=== PATIENT | male | born 1995 ===

== ENCOUNTER 2017-02-14 10:26 | Emergency (ER) | payer OTHER ==
--- NOTE | 2017-02-14 11:52 | DIAGNOSTIC IMAGING REPORT ---
PROCEDURE: XR CHEST 2 VIEW INDICATION: SHORTNESS OF BREATH TECHNIQUE: PA and lateral views. COMPARISON: None. FINDINGS: Lungs are clear. Heart and mediastinum are normal. Thorax is normal. IMPRESSION: 1. Negative chest.
--- NOTE | 2017-02-14 12:35 | ED CLINICAL REPORT ---
Clinical Report - Physicians/Mid Levels [facility] [address] [place] [address] 02/14/2017 10:30 Patient: CONTRERAS BELLO Time Seen: 10:51; initial patient contact. Arrived- By private vehicle. Historian- patient. HISTORY OF PRESENT ILLNESS Chief Complaint: DYSPNEA. This started 2 days ago and is still present. The dyspnea is described as moderate. The dyspnea is worsened by cough (worse w/ deep breath). No cough, sputum production, fever, sweating episodes or wheezing. No calf pain, foot swelling, anxiety or palpitations. He has had chest pain. Similar symptoms previously: None. Recent medical care: Not recently seen/assessed. REVIEW OF SYSTEMS No laceration or alteration in mental status. All systems otherwise negative, except as recorded above. PAST HISTORY PTSD. Surgeries: No history of previous surgery. Additional Surgeries: no known surgeries. Medications: TraZODone HCl Oral. Allergies: No Known Drug Allergy. SOCIAL HISTORY Smoker - current status unknown. Regular alcohol use. ADDITIONAL NOTES The nursing notes have been reviewed. PHYSICAL EXAM Vital Signs: 02/14/2017 10:41 BP: 115/75. HR: 102. RR: 18. O2 saturation: 98%. Temp: 97.6 F. Pain level now: 8/10. Have been reviewed. Blood pressure normal. Tachycardic. Respiratory rate normal. Temperature normal. Oxygen saturation normal. Appearance: Alert. No acute distress. Eyes: Eyes normal inspection. ENT: Ears normal. Nose normal. CVS: Normal heart rate and rhythm. Heart sounds normal. Respiratory: No respiratory distress. Mild splinting present on the right. Moderate right upper and anterior chest wall tenderness. The tenderness is well-localized. Breath sounds normal. Abdomen: Soft and nontender. Skin: Skin warm and dry. Normal skin color. Neuro: Oriented X 3. LABS, X-RAYS, AND EKG Chest X-ray: No acute disease. Normal lung markings present. Normal heart size. Mediastinum normal. Great vessels normal. Soft tissues normal. No infiltrate. No fracture. No bony lesion present. Views: PA and lateral. Technique: good. The X-rays were independently viewed by me and interpreted contemporaneously by me. Prior films were not available for comparison. PROGRESS AND PROCEDURES Disposition: Discharged home in good and improved condition. Condition: good. CLINICAL IMPRESSION Single contusion to the right chest. INSTRUCTIONS Apply ice for 20 minutes four times a day. Don't apply ice directly to skin. Your Current Medications: CONTINUE TAKING THE FOLLOWING MEDICATIONS: TraZODone HCl Oral. Prescription Medications: Diclofenac 50 mg tablets: take 1 tablet orally every 8 hours as needed for pain or stiffness. Dispense thirty (30). No refill. Follow-up: Follow up with your doctor in about two days. Call for an appointment. Screening today revealed the patient's blood pressure to be in the normal range. (Electronically signed by Suleman Sanchez Dr. 02/16/2017 8:43)
--- NOTE | 2017-02-14 12:35 | ED ORDER SUMMARY ---
..... Patient: CONTRERAS BELLO OrderSheet [facility] VisitID: [id number] [address] [place] [address] 21y, M Registration Date/Time: 02/14/2017 ORDER SHEET Weight: 88.4 kg (stated) Allergies: No Known Drug Allergy GENERAL ORDERS: Chest 2V Urgent (11:02/14/2017 Ashley Jenkins) (11:09 EHassatye R.N.) MEDICATION ORDERS: Hydrocodone-APAP PO 5/325 mg (NOW, HIGH ALERT MEDICATION) (11:02/14/2017 Ashley Jenkins) (11:09 Yesenia R.N.) IV FLUIDS: ORDER SHEET NOTES: [Electronically signed by Blanco Jiménez R.N. (13:07 02/14/2017)] [Electronically signed by Suleman Sanchez Dr. (08:43 02/16/2017)] [Electronically locked/signed by Blanco Jiménez R.N. (13:07 02/14/2017)]
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
--- NOTE | 2017-02-14 12:35 | ED ORDER SUMMARY ---
..... Patient: CONTRERAS BELLO OrderSheet [facility] VisitID: [id number] [address] [place] [address] 21y, M Registration Date/Time: 02/14/2017 ORDER SHEET Weight: 88.4 kg (stated) Allergies: No Known Drug Allergy GENERAL ORDERS: Chest 2V Urgent (11:02/14/2017 Ashley Jenkins) (11:09 EHassatye R.N.) MEDICATION ORDERS: Hydrocodone-APAP PO 5/325 mg (NOW, HIGH ALERT MEDICATION) (11:02/14/2017 Ashley Jenkins) (11:09 Yesenia R.N.) IV FLUIDS: ORDER SHEET NOTES: [Electronically signed by Blanco Jiménez R.N. (13:07 02/14/2017)] [Electronically signed by Suleman Sanchez Dr. (08:43 02/16/2017)] [Electronically locked/signed by Blanco Jiménez R.N. (13:07 02/14/2017)]
--- NOTE | 2017-02-14 12:35 | ED CLINICAL REPORT ---
Clinical Report - Physicians/Mid Levels [facility] [address] [place] [address] 02/14/2017 10:30 Patient: CONTRERAS BELLO Time Seen: 10:51; initial patient contact. Arrived- By private vehicle. Historian- patient. HISTORY OF PRESENT ILLNESS Chief Complaint: DYSPNEA. This started 2 days ago and is still present. The dyspnea is described as moderate. The dyspnea is worsened by cough (worse w/ deep breath). No cough, sputum production, fever, sweating episodes or wheezing. No calf pain, foot swelling, anxiety or palpitations. He has had chest pain. Similar symptoms previously: None. Recent medical care: Not recently seen/assessed. REVIEW OF SYSTEMS No laceration or alteration in mental status. All systems otherwise negative, except as recorded above. PAST HISTORY PTSD. Surgeries: No history of previous surgery. Additional Surgeries: no known surgeries. Medications: TraZODone HCl Oral. Allergies: No Known Drug Allergy. SOCIAL HISTORY Smoker - current status unknown. Regular alcohol use. ADDITIONAL NOTES The nursing notes have been reviewed. PHYSICAL EXAM Vital Signs: 02/14/2017 10:41 BP: 115/75. HR: 102. RR: 18. O2 saturation: 98%. Temp: 97.6 F. Pain level now: 8/10. Have been reviewed. Blood pressure normal. Tachycardic. Respiratory rate normal. Temperature normal. Oxygen saturation normal. Appearance: Alert. No acute distress. Eyes: Eyes normal inspection. ENT: Ears normal. Nose normal. CVS: Normal heart rate and rhythm. Heart sounds normal. Respiratory: No respiratory distress. Mild splinting present on the right. Moderate right upper and anterior chest wall tenderness. The tenderness is well-localized. Breath sounds normal. Abdomen: Soft and nontender. Skin: Skin warm and dry. Normal skin color. Neuro: Oriented X 3. LABS, X-RAYS, AND EKG Chest X-ray: No acute disease. Normal lung markings present. Normal heart size. Mediastinum normal. Great vessels normal. Soft tissues normal. No infiltrate. No fracture. No bony lesion present. Views: PA and lateral. Technique: good. The X-rays were independently viewed by me and interpreted contemporaneously by me. Prior films were not available for comparison. PROGRESS AND PROCEDURES Disposition: Discharged home in good and improved condition. Condition: good. CLINICAL IMPRESSION Single contusion to the right chest. INSTRUCTIONS Apply ice for 20 minutes four times a day. Don't apply ice directly to skin. Your Current Medications: CONTINUE TAKING THE FOLLOWING MEDICATIONS: TraZODone HCl Oral. Prescription Medications: Diclofenac 50 mg tablets: take 1 tablet orally every 8 hours as needed for pain or stiffness. Dispense thirty (30). No refill. Follow-up: Follow up with your doctor in about two days. Call for an appointment. Screening today revealed the patient's blood pressure to be in the normal range. (Electronically signed by Suleman Sanchez Dr. 02/16/2017 8:43)
--- NOTE | 2017-02-16 08:43 | ED DISCHARGE INSTRUCTIONS ---
Patient: CONTRERAS BELLO General Instructions [facility] VisitID: [id number] [place] [address] 21y, M Registration Date/Time: 02/14/2017 Single contusion to the right chest. INSTRUCTIONS Apply ice for 20 minutes four times a day. Don't apply ice directly to skin. Your Current Medications: CONTINUE TAKING THE FOLLOWING MEDICATIONS: TraZODone HCl Oral. Prescription Medications: Diclofenac 50 mg tablets: take 1 tablet orally every 8 hours as needed for pain or stiffness. Dispense thirty (30). No refill. Follow-up: Follow up with your doctor in about two days. Call for an appointment. Screening today revealed the patient's blood pressure to be in the normal range. ADDITIONAL INFORMATION Contusion,Soft Tissue You have a CONTUSION, which is a bruise with swelling and some bleeding under the skin. There are no broken bones. This injury takes a few days to a few weeks to heal. Home Care: 1) Keep the injured part elevated to reduce pain and swelling. This is especially important during the first 48 hours. 2) Make an ice pack (ice cubes in a plastic bag, wrapped in a towel) and apply for 20 minutes every 1-2 hours the first day. Continue this 3-4 times a day until the pain and swelling goes away. 3) You may use acetaminophen (Tylenol) or ibuprofen (Motrin, Advil) to control pain, unless another pain medicine was prescribed. [ NOTE : If you have chronic liver or kidney disease or ever had a stomach ulcer or GI bleeding, talk with your doctor before using these medicines.] Follow Up with your doctor or this facility if you are not improving within the next THREE days. [NOTE: If X-rays were taken, they will be reviewed by a radiologist. You will be notified of any new findings that may affect your care.] Get Prompt Medical Attention if any of the following occur: -- Pain or swelling increases -- Injured arm or leg becomes cold, blue, numb or tingly -- Redness, warmth or drainage from the skin You have been given the following additional information: Contusion, Soft Tissue (Electronically signed by Suleman Sanchez Dr. 02/16/2017 8:43)
--- NOTE | 2017-02-16 08:43 | ED MED RECONCILIATION SUMMARY ---
Patient: CONTRERAS BELLO Medication Reconciliation Report [facility] VisitID: [id number] [address] [place] [address] 21y, M Registration Date/Time: 02/14/2017 Weight: 88.4 kg Height/Length: 71 in. BMI: 27.2 ALLERGIES: No Known Drug Allergy The patient's Home Medications are listed below: CONTINUE TAKING THE FOLLOWING MEDICATIONS: TraZODone HCl Oral The source(s) of the original Home Medication information: patient The following Medications were given to the patient in the Emergency Department: Hydrocodone-APAP [PO] PO 1 tab, administered: 02/14/2017 11:09:00 AM The following Medications were prescribed to the patient: Diclofenac 50 mg tablets: take 1 tablet orally every 8 hours as needed for pain or stiffness. Dispense thirty (30). No refill. -- Suleman Sanchez Dr.
--- NOTE | 2017-02-16 08:43 | ED MAR SUMMARY ---
..... Medication Administration Record [address] [place] [address] Patient: CONTRERAS BELLO Visit ID: [id number] 21y, M Weight: 88.4 kg Height/Length: 71 in BMI: 27.2 ALLERGIES: No Known Drug Allergy Given 11:09 02/14/2017 Gabby Smart R.N. Medication Administered: HYDROCODONE-APAP [PO] (HYDROCODONE-ACETAMINOPHEN), Dose: 1 tab 5/325 mg Tablets PO. Medication Ordered: Hydrocodone-APAP PO 5/325 mg (NOW, HIGH ALERT MEDICATION).
--- NOTE | 2017-02-16 08:43 | ED MAR SUMMARY ---
..... Medication Administration Record [address] [place] [address] Patient: CONTRERAS BELLO Visit ID: [id number] 21y, M Weight: 88.4 kg Height/Length: 71 in BMI: 27.2 ALLERGIES: No Known Drug Allergy Given 11:09 02/14/2017 Gabby Smart R.N. Medication Administered: HYDROCODONE-APAP [PO] (HYDROCODONE-ACETAMINOPHEN), Dose: 1 tab 5/325 mg Tablets PO. Medication Ordered: Hydrocodone-APAP PO 5/325 mg (NOW, HIGH ALERT MEDICATION).
--- NOTE | 2017-02-16 08:43 | ED MED RECONCILIATION SUMMARY ---
Patient: CONTRERAS BELLO Medication Reconciliation Report [facility] VisitID: [id number] [address] [place] [address] 21y, M Registration Date/Time: 02/14/2017 Weight: 88.4 kg Height/Length: 71 in. BMI: 27.2 ALLERGIES: No Known Drug Allergy The patient's Home Medications are listed below: CONTINUE TAKING THE FOLLOWING MEDICATIONS: TraZODone HCl Oral The source(s) of the original Home Medication information: patient The following Medications were given to the patient in the Emergency Department: Hydrocodone-APAP [PO] PO 1 tab, administered: 02/14/2017 11:09:00 AM The following Medications were prescribed to the patient: Diclofenac 50 mg tablets: take 1 tablet orally every 8 hours as needed for pain or stiffness. Dispense thirty (30). No refill. -- Suleman Sanchez Dr.
--- NOTE | 2017-02-16 08:43 | ED DISCHARGE INSTRUCTIONS ---
Patient: CONTRERAS BELLO General Instructions [facility] VisitID: [id number] [place] [address] 21y, M Registration Date/Time: 02/14/2017 Single contusion to the right chest. INSTRUCTIONS Apply ice for 20 minutes four times a day. Don't apply ice directly to skin. Your Current Medications: CONTINUE TAKING THE FOLLOWING MEDICATIONS: TraZODone HCl Oral. Prescription Medications: Diclofenac 50 mg tablets: take 1 tablet orally every 8 hours as needed for pain or stiffness. Dispense thirty (30). No refill. Follow-up: Follow up with your doctor in about two days. Call for an appointment. Screening today revealed the patient's blood pressure to be in the normal range. ADDITIONAL INFORMATION Contusion,Soft Tissue You have a CONTUSION, which is a bruise with swelling and some bleeding under the skin. There are no broken bones. This injury takes a few days to a few weeks to heal. Home Care: 1) Keep the injured part elevated to reduce pain and swelling. This is especially important during the first 48 hours. 2) Make an ice pack (ice cubes in a plastic bag, wrapped in a towel) and apply for 20 minutes every 1-2 hours the first day. Continue this 3-4 times a day until the pain and swelling goes away. 3) You may use acetaminophen (Tylenol) or ibuprofen (Motrin, Advil) to control pain, unless another pain medicine was prescribed. [ NOTE : If you have chronic liver or kidney disease or ever had a stomach ulcer or GI bleeding, talk with your doctor before using these medicines.] Follow Up with your doctor or this facility if you are not improving within the next THREE days. [NOTE: If X-rays were taken, they will be reviewed by a radiologist. You will be notified of any new findings that may affect your care.] Get Prompt Medical Attention if any of the following occur: -- Pain or swelling increases -- Injured arm or leg becomes cold, blue, numb or tingly -- Redness, warmth or drainage from the skin You have been given the following additional information: Contusion, Soft Tissue (Electronically signed by Suleman Sanchez Dr. 02/16/2017 8:43)
== END 2017-02-14 12:49 | disposition home or self-care (01) ==
LOC: ED SRH 10:26
DX: S20.211A Contusion of right front wall of thorax, initial encounter (principal); Y04.0XXA Assault by unarmed brawl or fight, initial encounter; Y93.89 Activity, other specified; Y92.830 Public park as the place of occurrence of the external cause; Y99.8 Other external cause status; Z79.899 Other long term (current) drug therapy